=== PATIENT | male | born 1955 | race Caucasian/White ===

== ENCOUNTER 2024-11-24 13:16 | Emergency (ER) | payer OTHER, MEDICARE ==
[~2024-11-24] VITALS: Ht 177.8 cm; Wt 98.9 kg
[2024-11-24] MEDS ORDERED: ISOVUE-370 76% 100ML VIAL As Ordered ONE (13:49)
[2024-11-24 13:50] LABS: VENOUS BASE EXCESS -0.3 (-2.0-2.0); VENOUS HCO3 26.1 MMOL/L (23.0-27.0); VENOUS O2 SATURATION 77.1 % (60.0-80.0); VENOUS PARTIAL PRESSURE CO2 49.2 mmHg (38.0-50.0); VENOUS PARTIAL PRESSURE O2 43.1 mmHg (30.0-50.0); VENOUS PH 7.343 UNITS (7.330-7.430); VENOUS STANDARD HCO3 23.7 MMOL/L; VENOUS TOTAL CO2 27.6 MMOL/L (24.0-28.0)
[2024-11-24] MEDS ORDERED: METO200T15 PO (13:53)
[2024-11-24] MEDS ORDERED: LOSA25TA13 PO (13:53)
[2024-11-24] MEDS ORDERED: ATOR1TAB19 PO (13:53)
[2024-11-24] MEDS ORDERED: CLOP75TA2 PO (13:53)
[2024-11-24] MEDS ORDERED: METF10004 PO (13:53)
[2024-11-24] MEDS ORDERED: GLIP10TA PO (13:53)
[2024-11-24 13:57] LABS: BASO # 0.1 10^3/uL (0.0-0.2); BASO % 0.5 % (0.0-1.0); EOS # 0.2 10^3/uL (0.0-0.5); EOS % 1.7 % (0.0-3.0); HEMATOCRIT 44.9 % (42.0-52.0); HEMOGLOBIN 15.4 g/dl (13.5-17.5); LYMPH # 4.2 10^3/uL (1.5-5.0); LYMPH % 39.3 % (24.0-44.0); MEAN CORPUSCULAR HEMOGLOBIN 29.9 pg (27.0-33.0); MEAN CORPUSCULAR HGB CONC 34.3 g/dl (32.0-36.5); MEAN CORPUSCULAR VOLUME 87.2 fl (80.0-96.0); MONO # 0.7 10^3/uL (0.0-0.8); MONO % 6.7 % (2.0-8.0); NEUTROPHILS # 5.5 10^3/uL (1.5-8.5); NEUTROPHILS % 51.4 % (36.0-66.0); PLATELET COUNT, AUTOMATED 197 10^3/uL (150-450); RED BLOOD COUNT 5.15 10^6/uL (4.30-6.10); WHITE BLOOD COUNT 10.6 10^3/uL (4.0-10.0)
[2024-11-24 14:12] LABS: INR 0.96; PARTIAL THROMBOPLASTIN TIME 22.8 SECONDS (24.8-34.2)
[2024-11-24] MEDS: NS 500 ML IV ONE (14:18)
[2024-11-24] MEDS: MAG SULF 1GM/100ML (MAG RUN) 1 GM in IV 1 EA IV ONE ×2 (14:18→15:18)
[2024-11-24 14:22] LABS: ETHYL ALCOHOL (ETHANOL) < 0.003 % (0.000-0.010); LIPASE 55 U/L (12-53)
[2024-11-24 14:23] LABS: AMYLASE 49 U/L (30-118)
[2024-11-24 14:24] LABS: ALBUMIN 3.9 G/DL (3.2-5.2); ALKALINE PHOSPHATASE 92 U/L (40-129); ALT/SGPT 76 U/L (7.0-40); AST/SGOT 86 U/L (<34); BILIRUBIN,DIRECT 0.2 MG/DL (<0.4); BILIRUBIN,TOTAL 0.7 MG/DL (0.3-1.2); BLOOD UREA NITROGEN 20 MG/DL (9-23); CALCIUM LEVEL 9.5 MG/DL (8.3-10.6); CARBON DIOXIDE LEVEL 26 MMOL/L (20-31); CHLORIDE LEVEL 105 MMOL/L (98-107); GLOMERULAR FILTRATION RATE > 90.0 (>49); GLUCOSE, FASTING 235 MG/DL (74-106); MAGNESIUM LEVEL 1.7 MG/DL (1.8-2.4); POTASSIUM SERUM 3.9 MMOL/L (3.5-5.1); SODIUM LEVEL 143 MMOL/L (136-145); TOTAL PROTEIN 7.2 G/DL (5.7-8.2)
[2024-11-24 14:27] LABS: CK-MB VALUE MASS 2.9 NG/ML (<3.6)
[2024-11-24 14:31] LABS: FREE T4 1.09 NG/DL (0.89-1.76); THYROID STIMULATING HORMONE 2.078 uIU/ML (0.55-4.78)
[2024-11-24 14:42] LABS: CPK CREATINE PHOSPHOKINASE 142 U/L (46-171); MB/CK RELATIVE INDEX 2.04 (< OR =4)
[2024-11-24 14:58] LABS: APPEARANCE, URINE CLEAR (CLEAR); BACTERIA, URINE AUTO NEGATIVE (NEGATIVE); BILIRUBIN, URINE AUTO NEGATIVE (NEGATIVE); BLOOD, URINE BLOOD NEGATIVE (NEGATIVE); COLOR, URINE STRAW (YELLOW); GLUCOSE, URINE (UA) AUTO 3+ mg/dL (NEGATIVE); KETONE, URINE AUTO NEGATIVE (NEGATIVE); LEUKOCYTE ESTERASE, URINE AUTO NEGATIVE (NEGATIVE); NITRITE, URINE AUTO NEGATIVE (NEGATIVE); PROTEIN, URINE AUTO 2+ mg/dL (NEGATIVE); RBC, URINE AUTO 0 /HPF (0-3); SPECIFIC GRAVITY URINE AUTO 1.025 (1.002-1.035); SQUAMOUS EPITHELIAL CELL UR AU 0 /HPF (0-6); UROBILINOGEN, URINE AUTO 0.2 mg/dL (0.0-2.0); WBC, URINE AUTO 1 /HPF (0-3)
[2024-11-24 15:19] LABS: MB/CK RELATIVE INDEX 1.63 (< OR =4)
[2024-11-24 15:23] LABS: AMPHETAMINES LEVEL URINE NEGATIVE (NEGATIVE); BARBITURATES URINE NEGATIVE (NEGATIVE); BENZODIAZEPINES URINE NEGATIVE (NEGATIVE); CANNABINOIDS URINE NEGATIVE (NEGATIVE); COCAINE METABOLITE URINE NEGATIVE (NEGATIVE); METHADONE URINE NEGATIVE (NEGATIVE); OPIATES URINE NEGATIVE (NEGATIVE); PHENCYCLIDINE URINE NEGATIVE (NEGATIVE)
[2024-11-24] MEDS: dexAMETHasone 20MG/5ML VIAL IV ONE (15:41)
[2024-11-24] MEDS: MORPHINE 2 MG/ML 1ML VIAL IV PRN (15:42)
[2024-11-24 15:57] VITALS: TEMP 97.8
[2024-11-24 16:00] VITALS: BP 207/112; O2SAT 94
== END 2024-11-24 16:05 | disposition short-term general hospital (02) ==
LOC: M ED 13:16 → EDBD 13:16 → M ED 16:05
DX: S12.090A Other displaced fracture of first cervical vertebra, initial encounter for closed fracture (principal); S12.191A Other nondisplaced fracture of second cervical vertebra, initial encounter for closed fracture; S12.290A Other displaced fracture of third cervical vertebra, initial encounter for closed fracture; R55 Syncope and collapse; E83.42 Hypomagnesemia; I47.29 Other ventricular tachycardia; V48.5XXA Car driver injured in noncollision transport accident in traffic accident, initial encounter; Y92.9 Unspecified place or not applicable; Y93.9 Activity, unspecified; Y99.9 Unspecified external cause status; R91.8 Other nonspecific abnormal finding of lung field
CPT/HCPCS: 70450; 71045; 71260; 72125; 74177; 80047; 80048; 80076; 80307; 81001; 82077; 82150; 82550; 82553; 82803; 83605; 83690; 83735; 84439; 84443; 84484; 85025; 85610; 85730; 86850; 86900; 86901; 93005; 93041; 94760; 96365; 96366; 96375; 99285; J1100; J3475; Q9967